=== PATIENT | female | born 1965 | race Caucasian/White ===

== ENCOUNTER 2021-12-31 15:52 | Inpatient (IN) | payer OTHER ==
[2021-12-31 16:43] VITALS: BMI 24.4
[2021-12-31] MEDS ORDERED: MAG HYDROX/AL HYDROX/SIMETH 30 ML UNIT-DOSE CUP PO PRN (17:36)
[2021-12-31] MEDS ORDERED: BISMUTH SUBSALICYLATE 524 MG/30 ML PO PRN (17:36)
[2021-12-31] MEDS ORDERED: DICYCLOMINE HCL 10 MG CAPSULE PO PRN (17:36)
[2021-12-31] MEDS ORDERED: ONDANSETRON *ODT* 4 MG TABLET SL PRN (17:36)
[2021-12-31] MEDS ORDERED: NICOTINE POLACRILEX 2 MG GUM BUC PRN (17:36)
[2021-12-31] MEDS ORDERED: LOPERAMIDE HCL 2 MG CAPSULE PO PRN (17:36)
[2021-12-31] MEDS ORDERED: chlordiazePOXIDE HCL 25 MG CAPSULE PO PRN (17:36)
[2021-12-31] MEDS ORDERED: NALOXONE HCL (KLOXXADO) 8 MG SPRAY NS PRN (17:36)
[2021-12-31] MEDS ORDERED: IBUPROFEN 600 MG TABLET (FP) PO PRN (17:36)
[2021-12-31] MEDS ORDERED: MAGNESIUM HYDROX 2400MG/30ML ORAL SUSPENSION 30 ML CUP PO PRN (17:36)
[2021-12-31] MEDS ORDERED: IBUPROFEN 400 MG TABLET (FP) PO PRN (17:36)
[2021-12-31] MEDS ORDERED: MAGNESIUM CITRATE 300 ML BOTTLE PO PRN (17:36)
[2021-12-31] MEDS ORDERED: ACETAMINOPHEN 325 MG TABLET (FP) PO PRN ×2 (17:36)
[2021-12-31] MEDS: hydrOXYzine PAMOATE 25 MG CAPSULE (FP) PO SCH ×2 (19:41→22:52)
[2021-12-31] MEDS: PRENATAL VITAMINS W/ FOLIC ACID TABLET (FP) PO SCH (19:42)
[2021-12-31] MEDS: NICOTINE 21 MG/24 HOURS TOPICAL PATCH TD SCH (19:47)
[2021-12-31] MEDS ORDERED: MELATONIN 5 MG TABLETS PO SCH (22:00)
[2021-12-31] MEDS: chlordiazePOXIDE HCL 25 MG CAPSULE PO SCH (22:51)
[2021-12-31] MEDS: THIAMINE HCL 100 MG TABLET (FP) PO SCH (22:52)
[2021-12-31] MEDS: METHOCARBAMOL 500 MG TABLET PO PRN (22:52)
[2022-01-01] MEDS: hydrOXYzine PAMOATE 25 MG CAPSULE (FP) PO SCH ×5 (05:46→22:20)
[2022-01-01] MEDS: chlordiazePOXIDE HCL 25 MG CAPSULE PO SCH ×4 (05:46→22:21)
[2022-01-01 10:39] LABS: HEMATOCRIT 36.9 % (32.4-45.2); HEMOGLOBIN 12.5 GM/dL (10.7-15.3); MCH 37.7 pg (25.7-33.7); MCHC 33.8 g/dl (32.0-36.0); MEAN CELL VOLUME 111.5 fl (80-96); MEAN PLT VOLUME 9.1 fl (7.5-11.1); PLATELET COUNT 240 10^3/uL (134-434); RBC 3.31 M/mm3 (3.60-5.2); RDW 14.4 % (11.6-15.6); WHITE BLOOD COUNT 6.4 K/mm3 (4.0-10.0)
[2022-01-01] MEDS: METHOCARBAMOL 500 MG TABLET PO PRN (10:47)
[2022-01-01] MEDS: PRENATAL VITAMINS W/ FOLIC ACID TABLET (FP) PO SCH (10:47)
[2022-01-01] MEDS: NICOTINE 21 MG/24 HOURS TOPICAL PATCH TD SCH (10:48)
[2022-01-01 10:50] LABS: ALBUMIN 3.2 g/dl (3.4-5.0); BLOOD UREA NITROGEN 15.6 mg/dL (7-18)
[2022-01-01 10:53] LABS: CREATININE 0.9 mg/dL (0.55-1.3)
[2022-01-01 10:55] LABS: BILIRUBIN,TOTAL 0.5 mg/dL (0.2-1); TOT PROT 7.8 g/dl (6.4-8.2)
[2022-01-01] MEDS: VALSARTAN 80 MG TABLET PO SCH (11:22)
[2022-01-01] MEDS: busPIRone HCL 5 MG TABLET PO SCH ×2 (15:25→22:20)
[2022-01-01] MEDS: ESCITALOPRAM OXALATE 20 MG TABLET PO SCH (15:25)
[2022-01-01] MEDS: THIAMINE HCL 100 MG TABLET (FP) PO SCH (22:20)
[2022-01-01] MEDS: MELATONIN 5 MG TABLETS PO SCH (22:20)
[2022-01-01] MEDS: ROSUVASTATIN CA 20 MG TABLET PO SCH (22:22)
[2022-01-02] MEDS: METHOCARBAMOL 500 MG TABLET PO PRN ×2 (03:52→17:29)
[2022-01-02] MEDS: BENZOCAINE/MENTHOL (CHLORASEPTIC ) LOZENGE MM PRN ×2 (05:56→10:40)
[2022-01-02] MEDS: busPIRone HCL 5 MG TABLET PO SCH ×3 (05:57→22:26)
[2022-01-02] MEDS: hydrOXYzine PAMOATE 25 MG CAPSULE (FP) PO SCH ×5 (05:57→22:26)
[2022-01-02] MEDS: chlordiazePOXIDE HCL 25 MG CAPSULE PO SCH ×2 (05:57→10:09)
[2022-01-02] MEDS: PRENATAL VITAMINS W/ FOLIC ACID TABLET (FP) PO SCH (10:09)
[2022-01-02] MEDS: NICOTINE 21 MG/24 HOURS TOPICAL PATCH TD SCH (10:09)
[2022-01-02] MEDS: VALSARTAN 80 MG TABLET PO SCH (10:09)
[2022-01-02] MEDS: ESCITALOPRAM OXALATE 20 MG TABLET PO SCH (10:09)
[2022-01-02 13:42] VITALS: RESP 18
[2022-01-02] MEDS: NICOTINE 10 MG CARTRIDGE (INHALER) IH PRN ×2 (14:27→17:33)
[2022-01-02] MEDS: LORazepam 1 MG TABLET PO PRN ×2 (17:29→22:26)
[2022-01-02] MEDS: LORazepam 2 MG TABLET PO SCH ×2 (17:30→23:10)
[2022-01-02 21:02] VITALS: TEMP 97.3
[2022-01-02] MEDS: ROSUVASTATIN CA 20 MG TABLET PO SCH (22:26)
[2022-01-02] MEDS: THIAMINE HCL 100 MG TABLET (FP) PO SCH (22:27)
[2022-01-02] MEDS: MELATONIN 5 MG TABLETS PO SCH (23:10)
[2022-01-03] MEDS ORDERED: chlordiazePOXIDE HCL 10 MG CAPSULE PO PRN
[2022-01-03] MEDS ORDERED: chlordiazePOXIDE HCL 10 MG CAPSULE PO SCH (05:00)
[2022-01-03] MEDS: hydrOXYzine PAMOATE 25 MG CAPSULE (FP) PO SCH ×2 (05:21→10:35)
[2022-01-03] MEDS: LORazepam 1 MG TABLET PO SCH ×2 (05:21→10:33)
[2022-01-03] MEDS: busPIRone HCL 5 MG TABLET PO SCH (05:21)
[2022-01-03 09:32] VITALS: BP 126/79; PULSE 99
[2022-01-03] MEDS: VALSARTAN 80 MG TABLET PO SCH (10:33)
[2022-01-03] MEDS: ESCITALOPRAM OXALATE 20 MG TABLET PO SCH (10:33)
[2022-01-03] MEDS: PRENATAL VITAMINS W/ FOLIC ACID TABLET (FP) PO SCH (10:33)
[2022-01-03] MEDS: NICOTINE 21 MG/24 HOURS TOPICAL PATCH TD SCH (10:34)
[2022-01-04] MEDS ORDERED: LORazepam 0.5 MG TABLET PO PRN
[2022-01-04] MEDS ORDERED: chlordiazePOXIDE HCL 10 MG CAPSULE PO SCH (05:00)
[2022-01-04] MEDS ORDERED: LORazepam 0.5 MG TABLET PO SCH (05:00)
[2022-01-05] MEDS ORDERED: chlordiazePOXIDE HCL 10 MG CAPSULE PO ONE (05:00)
[2022-01-05] MEDS ORDERED: LORazepam 0.5 MG TABLET PO ONE (05:00)
== END 2022-01-03 11:55 | disposition left against medical advice (07) | DRG 770 ==
LOC: YASAS 15:52 → Y6N 18:39
PROVIDERS: ADMIT Allergy & Immunology; ATTEND Surgery
PROC: HZ2ZZZZ Detoxification Services for Substance Abuse Treatment (ICD-10-PCS; principal; 2021-12-31)
DX: F10.230 Alcohol dependence with withdrawal, uncomplicated (principal); F10.220 Alcohol dependence with intoxication, uncomplicated; F17.210 Nicotine dependence, cigarettes, uncomplicated; F41.9 Anxiety disorder, unspecified; F32.9 Major depressive disorder, single episode, unspecified; I10 Essential (primary) hypertension; E78.5 Hyperlipidemia, unspecified; R73.9 Hyperglycemia, unspecified; Z91.410 Personal history of adult physical and sexual abuse
CPT/HCPCS: 36415; 80053; 82962; 85027; 86780; C9803-CS; U0003; U0005

== ENCOUNTER 2022-06-01 13:26 | Inpatient (IN) | payer OTHER ==
[2022-06-01] MEDS ORDERED: IBUPROFEN 400 MG TABLET (FP) PO PRN (16:12)
[2022-06-01] MEDS ORDERED: NALOXONE HCL (KLOXXADO) 8 MG SPRAY NS PRN (16:12)
[2022-06-01] MEDS ORDERED: LORazepam 1 MG TABLET PO PRN (16:12)
[2022-06-01] MEDS ORDERED: POLYETHYLENE GLYCOL (HEALTHYLAX) 3350 17 GM PACKET PO PRN (16:12)
[2022-06-01] MEDS ORDERED: DICYCLOMINE HCL 10 MG CAPSULE PO PRN (16:12)
[2022-06-01] MEDS ORDERED: BENZOCAINE/MENTHOL (CHLORASEPTIC ) LOZENGE MM PRN (16:12)
[2022-06-01] MEDS ORDERED: BISMUTH SUBSALICYLATE 524 MG/30 ML PO PRN (16:12)
[2022-06-01] MEDS ORDERED: MAGNESIUM HYDROX 2400MG/30ML ORAL SUSPENSION 30 ML CUP PO PRN (16:12)
[2022-06-01] MEDS ORDERED: ACETAMINOPHEN 325 MG TABLET (FP) PO PRN ×2 (16:12)
[2022-06-01] MEDS ORDERED: LOPERAMIDE HCL 2 MG CAPSULE PO PRN (16:12)
[2022-06-01] MEDS ORDERED: ONDANSETRON *ODT* 4 MG TABLET SL PRN (16:12)
[2022-06-01] MEDS ORDERED: NICOTINE 10 MG CARTRIDGE (INHALER) IH PRN (16:12)
[2022-06-01] MEDS ORDERED: MAG HYDROX/AL HYDROX/SIMETH 30 ML UNIT-DOSE CUP PO PRN (16:12)
[2022-06-01] MEDS: LORazepam 2 MG TABLET PO SCH ×2 (17:40→22:20)
[2022-06-01] MEDS: NICOTINE 14 MG/24 HOURS TOPICAL PATCH TD SCH (18:12)
[2022-06-01] MEDS: PRENATAL VITAMINS W/ FOLIC ACID TABLET (FP) PO SCH (19:32)
[2022-06-01] MEDS: MELATONIN 5 MG TABLETS PO SCH (22:20)
[2022-06-01] MEDS: THIAMINE HCL 100 MG TABLET (FP) PO SCH (22:21)
[2022-06-01] MEDS: hydrOXYzine PAMOATE 25 MG CAPSULE (FP) PO PRN (22:23)
[2022-06-02] MEDS: LORazepam 2 MG TABLET PO SCH ×4 (05:26→22:22)
[2022-06-02] MEDS: PRENATAL VITAMINS W/ FOLIC ACID TABLET (FP) PO SCH (10:45)
[2022-06-02] MEDS: METHOCARBAMOL 500 MG TABLET PO PRN ×2 (10:46→22:24)
[2022-06-02] MEDS: NICOTINE 14 MG/24 HOURS TOPICAL PATCH TD SCH (10:47)
[2022-06-02 10:56] LABS: HEMATOCRIT 33.1 % (32.4-45.2); HEMOGLOBIN 11.7 GM/dL (10.7-15.3); MCH 38.1 pg (25.7-33.7); MCHC 35.4 g/dl (32.0-36.0); MEAN CELL VOLUME 107.8 fl (80-96); MEAN PLT VOLUME 8.4 fl (7.5-11.1); PLATELET COUNT 177 10^3/uL (134-434); RBC 3.07 M/mm3 (3.60-5.2); RDW 14.1 % (11.6-15.6); WHITE BLOOD COUNT 5.9 K/mm3 (4.0-10.0)
[2022-06-02 11:14] LABS: ALBUMIN 3.6 g/dl (3.4-5.0)
[2022-06-02 11:15] LABS: BLOOD UREA NITROGEN 38.4 mg/dL (7-18)
[2022-06-02 11:16] LABS: CALCIUM 9.1 mg/dL (8.5-10.1)
[2022-06-02 11:17] LABS: CREATININE 1.2 mg/dL (0.55-1.3)
[2022-06-02 11:19] LABS: BILIRUBIN,TOTAL 0.8 mg/dL (0.2-1); TOT PROT 8.3 g/dl (6.4-8.2)
[2022-06-02] MEDS: ESCITALOPRAM OXALATE 20 MG TABLET PO SCH (14:18)
[2022-06-02] MEDS: busPIRone HCL 5 MG TABLET PO SCH ×2 (14:18→22:22)
[2022-06-02] MEDS: hydrOXYzine PAMOATE 25 MG CAPSULE (FP) PO PRN (16:44)
[2022-06-02] MEDS: IBUPROFEN 600 MG TABLET (FP) PO PRN (16:45)
[2022-06-02] MEDS ORDERED: METOPROLOL TARTRATE 25 MG TABLET (FP) PO ONE (16:47)
[2022-06-02] MEDS: MELATONIN 5 MG TABLETS PO SCH (22:22)
[2022-06-02] MEDS: THIAMINE HCL 100 MG TABLET (FP) PO SCH (22:22)
[2022-06-03] MEDS ORDERED: MELATONIN 5 MG TABLETS PO PRN (04:36)
[2022-06-03] MEDS: LORazepam 1 MG TABLET PO SCH ×4 (05:49→22:53)
[2022-06-03] MEDS: busPIRone HCL 5 MG TABLET PO SCH ×5 (05:49→22:46)
[2022-06-03] MEDS: IBUPROFEN 600 MG TABLET (FP) PO PRN ×2 (06:21→21:11)
[2022-06-03] MEDS: VALSARTAN 80 MG TABLET PO SCH (10:55)
[2022-06-03] MEDS: PRENATAL VITAMINS W/ FOLIC ACID TABLET (FP) PO SCH (10:56)
[2022-06-03] MEDS: ESCITALOPRAM OXALATE 20 MG TABLET PO SCH (10:56)
[2022-06-03] MEDS: NICOTINE 14 MG/24 HOURS TOPICAL PATCH TD SCH (10:56)
[2022-06-03 16:55] VITALS: BMI 27.3
[2022-06-03] MEDS: METHOCARBAMOL 500 MG TABLET PO PRN (21:11)
[2022-06-03] MEDS ORDERED: ROSUVASTATIN CA 20 MG TABLET PO SCH (22:00)
[2022-06-03] MEDS: THIAMINE HCL 100 MG TABLET (FP) PO SCH (22:53)
[2022-06-04] MEDS ORDERED: LORazepam 0.5 MG TABLET PO PRN
[2022-06-04] MEDS: METHOCARBAMOL 500 MG TABLET PO PRN (05:41)
[2022-06-04] MEDS: IBUPROFEN 600 MG TABLET (FP) PO PRN (05:41)
[2022-06-04] MEDS: LORazepam 0.5 MG TABLET PO SCH ×2 (05:41→10:10)
[2022-06-04] MEDS: busPIRone HCL 5 MG TABLET PO SCH (05:41)
[2022-06-04] MEDS: PRENATAL VITAMINS W/ FOLIC ACID TABLET (FP) PO SCH (09:26)
[2022-06-04] MEDS: NICOTINE 14 MG/24 HOURS TOPICAL PATCH TD SCH (09:26)
[2022-06-04] MEDS: ESCITALOPRAM OXALATE 20 MG TABLET PO SCH (09:26)
[2022-06-04 09:41] VITALS: BP 151/96; PULSE 94; RESP 17; TEMP 97.1
[2022-06-04] MEDS: VALSARTAN 80 MG TABLET PO SCH (09:44)
[2022-06-05] MEDS ORDERED: LORazepam 0.5 MG TABLET PO ONE (05:00)
== END 2022-06-04 09:34 | disposition home or self-care (01) | DRG 775 ==
LOC: YASAS 13:26 → Y6N 16:27
PROVIDERS: ADMIT Allergy & Immunology; ATTEND Surgery
PROC: HZ2ZZZZ Detoxification Services for Substance Abuse Treatment (ICD-10-PCS; principal; 2022-06-01)
DX: F10.230 Alcohol dependence with withdrawal, uncomplicated (principal); F17.210 Nicotine dependence, cigarettes, uncomplicated; F10.282 Alcohol dependence with alcohol-induced sleep disorder; E78.5 Hyperlipidemia, unspecified; I10 Essential (primary) hypertension; G47.00 Insomnia, unspecified; F32.9 Major depressive disorder, single episode, unspecified; K58.9 Irritable bowel syndrome, unspecified; R07.81 Pleurodynia; S20.212A Contusion of left front wall of thorax, initial encounter; W01.198A Fall on same level from slipping, tripping and stumbling with subsequent striking against other object, initial encounter; Y92.231 Patient bathroom in hospital as the place of occurrence of the external cause
CPT/HCPCS: 36415; 80053; 82140; 85027; 86780; 87811; 93005; 93010; C9803-CS; U0003; U0005

== ENCOUNTER 2022-06-03 10:59 | Emergency (ER) | payer OTHER ==
[2022-06-03 11:09] VITALS: BMI 27.3
[2022-06-03] MEDS ORDERED: ACETAMINOPHEN 500 MG TABLET (FP) PO ONE (11:17)
[2022-06-03] MEDS ORDERED: LIDOCAINE 5% TOPICAL PATCH TP ONE (11:17)
[2022-06-03] MEDS ORDERED: LIDOCAINE 5% TOPICAL PATCH ONE ×2 (11:27→13:51)
[2022-06-03] MEDS ORDERED: ACETAMINOPHEN 325 MG TABLET (FP) ONE (11:27)
[2022-06-03 14:41] VITALS: BP 172/98; PULSE 71; RESP 20; TEMP 98.7
[2022-06-03] MEDS ORDERED: LIDOCAINE PATCH REMOVAL MC ONE (22:00)
== END 2022-06-03 16:11 | disposition home or self-care (01) ==
LOC: JER 10:59
DX: R07.81 Pleurodynia (principal)
CPT/HCPCS: 70450-TC; 71250-TC; 72125-TC; 93005; 93010; 99284-25